=== PATIENT | female | born 1995 | race Asian ===

== ENCOUNTER → 2025-01-13 07:54 | Outpatient (REF) | payer BC, SELFPAY ==
[2025-01-13 09:18] LABS: Hematocrit 42.7 % (37.0-47.0); Hemoglobin 13.4 g/dL (12.0-16.0); Mean Corp Hgb Conc. 31.4 g/dL (33.0-37.0); Mean Corpuscular Volume 76.8 fL (81.0-99.0); Nucleated Red Blood Cells % 0 %; Platelet Count 215 10^3/uL (130-400); Red Cell Dist. Width 15.6 % (11.5-14.5)
[2025-01-13 09:37] LABS: ALT (SGPT) 22 U/L (0-35); AST (SGOT) 25 U/L (14-36); Albumin 4.8 g/dl (3.5-5.0); Alkaline Phosphatase 65 U/L (38-126); Blood Urea Nitrogen 12 mg/dl (7-17); Calcium 9.5 mg/dl (8.4-10.2); Carbon Dioxide 25 mmol/L (22-30); Chloride 107 mmol/L (98-107); Glucose 88 mg/dl (70-99); HDL Cholesterol 77 mg/dl; Iron 61 ug/dl (37-170); LDL Cholesterol, Calculated 73 mg/dl; Potassium 4.4 mmol/L (3.5-5.1); Sodium 139 mmol/L (135-145); Total Protein 7.7 g/dl (6.3-8.2); Very Low Density Lipoprotein 16 mg/dl (0-30); eGFR > 60.00
[2025-01-13 09:46] LABS: Vitamin D, 25-OH*** 26.6 ng/mL (30-80)
[2025-01-13 10:04] LABS: Ferritin 6.6 ng/ml (6.24-137)
[2025-01-13 10:20] LABS: Vitamin B12 364 pg/ml (239-931)
[2025-01-13 10:40] LABS: Glycohemoglobin (HgbA1c) 5.1 % (4.0-5.6)
[2025-01-14 20:51] LABS: Transferrin 432 mg/dL (200-360)
== END ==
LOC: REG 07:54
PROVIDERS: ATTENDING PHYSICIAN Registered Nurse Medical-Surgical
DX: E55.9 Vitamin D deficiency, unspecified (principal); Z00.00 Encounter for general adult medical examination without abnormal findings; Z13.1 Encounter for screening for diabetes mellitus; Z13.220 Encounter for screening for lipoid disorders; Z13.29 Encounter for screening for other suspected endocrine disorder; D50.0 Iron deficiency anemia secondary to blood loss (chronic); Z78.9 Other specified health status
CPT/HCPCS: 36415; 80053; 80061; 82306; 82607; 82728; 83036; 83540; 84443; 84466; 85025